=== PATIENT | male | born 1985 | race Caucasian/White ===

== ENCOUNTER 2020-03-27 15:55 | Day surgery (SDC) | payer BC ==
[~2020-03-27 15:55] MED LIST: Dexamethasone 20 MG/5 ML VIAL ONE; Glycopyrrolate 0.2 MG/ML 5 ML SYRINGE ONE; Lidocaine 1% PF 5 ML VIAL ONE; Ondansetron PF 4 MG/2 ML Vial ONE; PROPOFOL 200 MG/20 ML VIAL ONE; Rocuronium Bromide 10 MG/ML (10ML VIAL) ONE; Succinylcholine 200 MG/10 ml SYRINGE FS ONE
[2020-03-27] MEDS ORDERED: Ketorolac Tromethamine 30 MG/ML VIAL ONE (16:13)
[2020-03-27] MEDS ORDERED: Ondansetron PF 4 MG/2 ML Vial ONE (16:14)
[2020-03-27] MEDS ORDERED: Lidocaine 1% w/Epinephrine 1:100K 20 ML VIAL ONE (16:38)
[2020-03-27] MEDS ORDERED: Bupivacaine PF 0.5% 30 ML VIAL ONE (16:38)
[2020-03-27] MEDS ORDERED: Fentanyl 100 MCG/2 ML VIAL ONE ×3 (16:39→18:59)
[2020-03-27] MEDS ORDERED: Midazolam HCl 2 mg/2 ml Vial ONE (16:39)
[2020-03-27] MEDS ORDERED: HYDROmorphone 0.5 MG/0.5 ML SYRINGE ONE (17:48)
[2020-03-27] MEDS ORDERED: Meperidine HCl/PF 25 MG/ML VIAL ONE (18:26)
[2020-03-27] MEDS ORDERED: Promethazine HCl 25 MG/ML VIAL ONE (18:45)
--- NOTE | 2020-03-27 20:50 | OP ---
DATE OF PROCEDURE: 03/27/2020 PREOPERATIVE DIAGNOSES: Acute appendicitis, chronic cholecystitis, cholelithiasis. POSTOPERATIVE DIAGNOSES: Acute appendicitis, chronic cholecystitis, cholelithiasis. PROCEDURE PERFORMED: Laparoscopic video appendectomy. Laparoscopic video cholecystectomy. INDICATIONS: Patient presented with acute appendicitis to an outlying ER, transferred here for appendectomy. CAT scan reveal multiple gallstones. The patient had biliary symptoms for several years intermittently, seen several physicians without diagnosis. ANESTHESIA: General, local 0.5% Marcaine 30 mL mixed with 1% Xylocaine with epinephrine 20 mL, total volume used. FINDINGS: Multiple gallstones and acute appendicitis. DESCRIPTION OF PROCEDURE: The patient was taken to the operating room, where under general anesthesia, Grace catheter was placed at the beginning of the procedure and removed at the end. Abdomen was prepared with ChloraPrep and draped in routine fashion. Local anesthetic was infiltrated in the skin and subcutaneous tissue about the operative port site. Infraumbilical incision was made, pneumoperitoneum to 15 mmHg was obtained with a Veress needle, replaced with a 5 port and the laparoscope inserted. Suprapubic incision was made and a 12 port placed. Right subxiphoid incision and right subcostal incisions made at midclavicular entrance line and 5 ports placed. Liver appeared to be normal. Gallbladder fundus grasped at the cephalad. Infundibulum was grasped and retracted laterally. Cystic artery and duct dissected free. Critical view obtained. Cystic artery and duct doubly clipped proximally and divided. Gallbladder dissected free from liver bed, obtaining good hemostasis prior to division of final attached attachments. Gallbladder removed from the suprapubic port removing multiple stones and gallbladder submitted to Pathology. Good hemostasis was obtained with cautery and Emeka. Irrigant and pneumoperitoneum evacuated after noting good hemostasis. Patient placed in reverse Trendelenburg. Appendix was acutely inflamed and mobilized exposing that it was next to the terminal ileum. The mesoappendix taken down with the LigaSure. The stump of the appendix divided with Endo-VISHAL blue load stapler fired x2. Appendix placed in Endobag and removed. Good hemostasis was noted. Clips placed on the staple line. Irrigant in the pelvis and pericecal area irrigated. Good hemostasis was assured. Irrigant and pneumoperitoneum evacuated. All instruments were removed and suprapubic fascia was approximated with 0 Vicryl and skin with subdermal 4-0 Monocryl and [place] glue applied. Job ID: [id number]
== END 2020-03-27 21:17 | disposition home or self-care (01) ==
LOC: SDC 15:55
PROVIDERS: ATTEND Specialist
PROC: 0DTJ4ZZ Resection of Appendix, Percutaneous Endoscopic Approach (ICD-10-PCS; principal; 2020-03-27)
PROC: 0FT44ZZ Resection of Gallbladder, Percutaneous Endoscopic Approach (ICD-10-PCS; principal; 2020-03-27)
DX: K80.10 Calculus of gallbladder with chronic cholecystitis without obstruction (principal); K35.80 Unspecified acute appendicitis
CPT/HCPCS: 88304; J1100; J1170; J1885; J2175; J2250; J2405; J2550; J2704; J3010; S0020